=== PATIENT | female | born 1950 | race Caucasian/White ===

== ENCOUNTER → 2018-01-15 | Outpatient (CLI) | payer MEDICARE ==
[~2018-01-15] MED LIST: DOBUTamine 250 MG in DEXTROSE 5% IN WATER 250 ML IV ONE
--- NOTE | 2018-01-15 12:29 | ECHOS ---
STRESS ECHOCARDIOGRAM DOBUTAMINE STRESS ECHOCARDIOGRAM DATE OF SERVICE: 01/15/2018 INDICATIONS: Chest pain. MEDICATIONS: BASELINE HEART RATE: 61 BASELINE BLOOD PRESSURE: 188/66 MAXIMUM HEART RATE: 129 MAXIMUM BLOOD PRESSURE: 214/45 85% MPHR: 129 100% MPHR: 152 METS: MAXIMUM STAGE REACHED: TOTAL EXERCISE TIME: CLINICAL INFORMATION: STRESS DATA: Pretesting physical examination showed a heart rate of 61, pressure is 188/66 mmHg. Baseline EKG showed sinus mechanism. Dobutamine infusion at a dose of 10 mcg/kg per minute was initiated and increased to 40 mcg/kg per minute. Max heart rate was 129, which is about 85% of maximum predicted heart rate. Maximum blood pressure was 214/45 mmHg. Clinically, the patient did not have any symptoms of chest pain or discomfort during the testing or in the recovery time. The EKG did not show any significant ST or T-wave abnormalities consistent with ischemia. ECHOCARDIOGRAM IMAGES: Echocardiogram images from parasternal long axis view, parasternal short axis view, apical 4 chamber and apical 2 chamber views were obtained as the baseline images at low dose dobutamine infusion, at the peak of the heart rate as well as on recovery. The echocardiogram images showed good augmentation in the left ventricular systolic function without any evidence of wall motion abnormalities consistent with ischemia. CONCLUSION: 1. Normal EKG in response to dobutamine. 2. Normal echocardiogram in response to dobutamine. 3. Essentially normal dobutamine stress echocardiogram for the patient. [place] / BRENDA: [id number] /
== END | disposition home or self-care (01) ==
LOC: RADNMMAIN 09:04
PROVIDERS: ATTEND Internal Medicine Geriatric Medicine
DX: R06.02 Shortness of breath (principal)
CPT/HCPCS: 93351; J1250

== ENCOUNTER → 2019-04-24 | Outpatient (CLI) | payer MEDICARE ==
--- NOTE | 2019-04-24 13:29 | BD ---
EXAMINATION TYPE: Axial Bone Density DATE OF EXAM: 04/24/2019 COMPARISON: 2014 CLINICAL HISTORY: M 80.0 Height: 67 Weight: 336.2 FRAX RISK QUESTIONS: Alcohol (3 or more units per day): no Family History (Parent hip fracture): no Glucocorticoids (More than 3mos): no (Ex: prednisone, prednisolone, methylprednisolone, dexamethasone, and hydrocortisone). History of Fracture in Adulthood: no Secondary Osteoporosis: 1. Type 1 Diabetes: no 2. Hyperthyroidism: no 3. Menopause before 45: yes 4. Malnutrition: no 5. Chronic liver disease: no Rheumatoid Arthritis: no Current Tobacco Use: no RISK FACTORS HISTORY OF: Family History of Osteoporosis: no Active: no Diet low in dairy products/other sources of calcium: no Postmenopausal woman: age 37 MEDICATIONS: labetalol, oxybutynin, fish oil, pressure, vision, omeprazole Thyroid Medications: levothyroxine How Lon years Additional History: EXAM MEASUREMENTS: Bone mineral densitometry was performed using the [employer] System. Bone mineral density as measured about the Lumbar spine is: ----- L1-L4(G/cm2): 1.104 T Score Values are as follows: ----- L2: -0.6 ----- L3: -0.1 ----- L4: -0.9 ----- L1-L4: -0.6 Bone mineral density has: decreased -8.0 % since study of: 12.25.2014 Bone mineral density about the R hip (g/cm2): 0.909 Bone mineral density about the L hip (g/cm2): 0.900 T Score values are as follows: -----R Neck: -0.9 -----L Neck: -1.0 -----R Total: 0.0 -----L Total: -0.1 Bone mineral density has: decreased -4.8 % since study of: 12.25.2014 IMPRESSION: Normal (Values between +1 and -1 indicate normal bone mass). Borderline osteopenia. Consider repeati ng this study in 5 years or sooner if there is some new clinical indication. NOTE: T-SCORE=SD OF THE YOUNG ADULT MEAN.
--- NOTE | 2019-04-25 14:22 | MM ---
Reason for exam: screening (asymptomatic). Last mammogram was performed 3 years and 4 months ago. History: Patient is postmenopausal and is nulliparous. Family history of breast cancer in maternal aunt at age 58. Benign US RT VAD breast biopsy of the right breast, December 26, 2011. Took estrogen for 1 year beginning at age 46. Took progesterone for 1 year beginning at age 46. Physical Findings: A clinical breast exam by your physician is recommended on an annual basis and results should be correlated with mammographic findings. MG 3D Screening Mammo W/Cad Bilateral CC, MLO, and XCCL view(s) were taken. Prior study comparison: January 05, 2016, bilateral MG 3d screening mammo w/cad. December 25, 2014, bilateral MG screening mammo w CAD. There are scattered fibroglandular densities. There is increased size of the right upper outer quadrant mass directly posterior to the right biopsy marker. Benign appearing bilateral calcifications. No suspicious abnormality on the left. Right biopsy marker noted. ASSESSMENT: Incomplete: need additional imaging evaluation, BI-RAD 0 RECOMMENDATION: Ultrasound of the right breast. [facility] will attempt to contact patient to return for ultrasound.
== END | disposition home or self-care (01) ==
LOC: RADMAMWWP 10:13
PROVIDERS: ATTEND Internal Medicine Geriatric Medicine
DX: Z12.31 Encounter for screening mammogram for malignant neoplasm of breast (principal); M81.0 Age-related osteoporosis without current pathological fracture; M85.80 Other specified disorders of bone density and structure, unspecified site
CPT/HCPCS: 77063; 77067; 77080

== ENCOUNTER → 2019-05-02 | Outpatient (CLI) | payer MEDICARE ==
--- NOTE | 2019-05-02 09:26 | USB ---
Reason for exam: additional evaluation requested from abnormal screening. History: Patient is postmenopausal and is nulliparous. Family history of breast cancer in maternal aunt at age 58. Benign US RT VAD breast biopsy of the right breast, December 26, 2011. Took estrogen for 1 year beginning at age 46. Took progesterone for 1 year beginning at age 46. Physical Findings: Nurse did not find any significant physical abnormalities on exam. US Breast Workup Limited RT Right limited breast ultrasound including focal area of concern, retroareolar and axilla demonstrates a 3.0 x 2.4 x 0.7cm solid, hypoechoic lesion at 10 o'clock previously biopsied and a 0.9 x 0.8 x 0.4cm simple cyst at 10 o'clock. These results were verbally communicated with the patient and result sheet given to the patient on 05/02/19. ASSESSMENT: Benign, BI-RAD 2 RECOMMENDATION: Return to routine screening mammogram schedule for both breasts.
== END | disposition home or self-care (01) ==
LOC: RADUSWWP 07:41
PROVIDERS: ATTEND Internal Medicine Geriatric Medicine
DX: R92.8 Other abnormal and inconclusive findings on diagnostic imaging of breast (principal)

== ENCOUNTER → 2021-06-09 | Outpatient (CLI) | payer MEDICARE ==
--- NOTE | 2021-06-10 12:14 | MM ---
Reason for exam: screening (asymptomatic). Last mammogram was performed 2 years and 1 month ago. History: Patient is postmenopausal and is nulliparous. Family history of breast cancer in maternal aunt at age 58. Benign US RT VAD breast biopsy of the right breast, December 26, 2011. Took estrogen for 1 year beginning at age 46. Took progesterone for 1 year beginning at age 46. Physical Findings: A clinical breast exam by your physician is recommended on an annual basis and results should be correlated with mammographic findings. MG 3D Screening Mammo W/Cad Bilateral CC and MLO view(s) were taken. Prior study comparison: April 24, 2019, bilateral MG 3d screening mammo w/cad. January 05, 2016, bilateral MG 3d screening mammo w/cad. There are scattered fibroglandular densities. Stable benign calcifications. There is no discrete abnormality. No significant changes when compared with prior studies. ASSESSMENT: Benign, BI-RAD 2 RECOMMENDATION: Routine screening mammogram of both breasts in 1 year.
== END | disposition home or self-care (01) ==
LOC: RADMAMWWP 09:48
PROVIDERS: ATTEND Internal Medicine Geriatric Medicine
DX: Z12.31 Encounter for screening mammogram for malignant neoplasm of breast (principal); Z78.0 Asymptomatic menopausal state; Z80.3 Family history of malignant neoplasm of breast
CPT/HCPCS: 77063; 77067